=== PATIENT | female | born 2000 | race Caucasian/White ===

== ENCOUNTER 2018-01-08 05:53 | Day surgery (SDC) | payer OTHER ==
[~2018-01-08 05:53] MED LIST: CEFAZOLIN 2 GM/50 ML (PMX) 50 ML IVPB
[2018-01-08] MEDS ORDERED: LIDOCAINE 1% (MDV) 20 ML INJ (07:40)
[2018-01-08] MEDS ORDERED: MIDAZOLAM 1 MG/ML 2 ML INJ (07:40)
[2018-01-08] MEDS ORDERED: PROPOFOL 20 ML (07:40)
[2018-01-08] MEDS ORDERED: ROPIVACAINE 0.2% 20 ML VIAL (07:43)
[2018-01-08] MEDS ORDERED: DEXAMETHASONE 4 MG/ML 1 ML INJ (08:11)
[2018-01-08] MEDS ORDERED: ONDANSETRON 4 MG INJ (08:11)
[2018-01-08] MEDS ORDERED: KETOROLAC 30 MG INJ (08:11)
[2018-01-08] MEDS ORDERED: FAMOTIDINE 20 MG INJ (08:11)
[2018-01-08] MEDS ORDERED: CEFAZOLIN 1 GM INJ (08:11)
[2018-01-08] MEDS: BUPIVACAINE 0.5% (SDV) 30 ML INJ (08:29)
[2018-01-08] MEDS ORDERED: HYDROmorphONE (0.2 MG/ML) 10ML SYG IV (09:00)
== END 2018-01-08 10:24 | disposition home or self-care (01) ==
LOC: SDS 05:53
DX: L60.0 Ingrowing nail (principal); L03.032 Cellulitis of left toe; E66.9 Obesity, unspecified; Z68.36 Body mass index [BMI] 36.0-36.9, adult
CPT/HCPCS: 11750; 88300